=== PATIENT | female | born 1965 | race Caucasian/White ===

== ENCOUNTER 2020-05-26 17:27 | Emergency (ER) | payer OTHER | END 2020-05-26 17:54 | disposition home or self-care (01) | LOC: JVIRT 17:27 | DX: Z11.59 Encounter for screening for other viral diseases (principal) | CPT/HCPCS: C9803; Q3014-GT; U0003 ==

== ENCOUNTER 2021-02-16 11:42 | Emergency (ER) | payer OTHER ==
[2021-02-18 14:11] LABS: SARS-CoV-2 NAA Not Detected (Not Detected)
== END 2021-02-16 16:31 | disposition home or self-care (01) ==
LOC: JVIRT 11:42
DX: Z20.822 Contact with and (suspected) exposure to COVID-19 (principal)
CPT/HCPCS: C9803; Q3014-GT; U0003; U0005